=== PATIENT | male | born 1970 ===

== ENCOUNTER 2017-03-24 19:16 | Emergency (ER) | payer MEDICAID ==
[2017-03-24] MEDS ORDERED: KETOROLAC TROMETHAMINE 15 MG/ML VIAL ONE (20:17)
[2017-03-24] MEDS ORDERED: DIPHENHYDRAMINE HCL 50 MG/1 ML VIAL ONE (20:17)
[2017-03-24] MEDS ORDERED: LACTATED RINGERS 1,000 ML ONE (20:17)
[2017-03-24] MEDS ORDERED: METOCLOPRAMIDE HCL 5 MG/ML 2ML VIAL ONE (20:17)
== END 2017-03-24 23:29 | disposition home or self-care (01) ==
LOC: ED 19:16
DX: R51 Headache (principal); R11.0 Nausea; F17.210 Nicotine dependence, cigarettes, uncomplicated